=== PATIENT | male | born 1960 | race Hispanic/Latino ===

== ENCOUNTER 2017-06-25 12:12 | Emergency (ER) | payer OTHER, BC ==
[2017-06-25 12:13] VITALS: PULSE 104
[2017-06-25 12:27] VITALS: BMI 36.3
[2017-06-25 12:29] VITALS: BP 142/83; PULSE 80; RESP 16; TEMP 98; O2SAT 96
--- NOTE | 2017-06-25 14:16 | RAD ---
PROCEDURE: Right Hand Radiographs. HISTORY: 3rd and 2nd finger injury COMPARISON: None. FINDINGS: BONES: Minimally displaced, angulated fracture of the 4th distal phalanx. Small ossific fragment along the dorsal aspect of the 3rd distal interphalangeal joint. JOINTS: Unremarkable. SOFT TISSUES: Mild soft tissue swelling adjacent to the 3rd distal interphalangeal joint. OTHER FINDINGS: None. IMPRESSION: Minimally displaced, angulated fracture of the 4th distal phalanx. Small ossific fragment along the dorsal aspect of the 3rd distal interphalangeal joint may represent a chip/avulsion fracture.
--- NOTE | 2017-06-25 14:43 | ED PDOC ---
Upper Extremity Pain/Injury Time Seen by Provider: 06/25/17 12:49 Chief Complaint (Nursing): Upper Extremity Problem/Injury Chief Complaint (Provider): Right hand pain, injuries at work History Per: Patient History/Exam Limitations: no limitations Onset/Duration Of Symptoms: Hrs Current Symptoms Are (Timing): Still Present Additional Complaint(s): 57 yo male prestns wtih right hand injury. PT was fixing tire at work and fingers smashed. No numbness/tingling. PT reports most pain distal right 4th digit. Past Medical History Reviewed: Historical Data, Nursing Documentation, Vital Signs Vital Signs: Last Vital Signs Temp 98 F 06/25/17 12:27 Pulse 80 06/25/17 12:27 Resp 16 06/25/17 12:27 BP 142/83 06/25/17 12:27 Pulse Ox 96 06/25/17 12:27 - Medical History PMH: Diabetes Denies: Chronic Kidney Disease - Surgical History Surgical History: No Surg Hx - Family History Family History: States: No Known Family Hx - Living Arrangements Living Arrangements: With Family - Social History Current smoker - smoking cessation education provided: No - Home Medications Home Medications: Ambulatory Orders Medication Instructions Recorded Aspirin 81 mg PO DAILY 02/10/14 Atorvastatin [Lipitor] 80 mg PO DAILY 02/10/14 Carvedilol [Coreg] 3.125 mg PO BID 02/10/14 Clopidogrel [Plavix] 75 mg PO DAILY 02/10/14 Digoxin 0.25 mg PO DAILY 02/10/14 Furosemide [Lasix] 40 mg PO DAILY 02/10/14 Ramipril 1.25 mg PO DAILY 02/10/14 Spironolactone 25 mg PO DAILY 02/10/14 - Allergies Allergies/Adverse Reactions: Allergies Allergy/AdvReac Type Severity Reaction Status Date / Time No Known Allergies Allergy Verified 06/25/17 12:30 Review of Systems ROS Statement: Except As Marked, All Systems Reviewed And Found Negative Constitutional: Negative for: Fever, Chills Physical Exam - Reviewed Nursing Documentation Reviewed: Yes Vital Signs Reviewed: Yes - Physical Exam Appears: Positive for: Well, Non-toxic, No Acute Distress Head Exam: Positive for: ATRAUMATIC, NORMAL INSPECTION, NORMOCEPHALIC Skin: Positive for: Warm. Negative for: Normal Color (small hematoma, right anterior 3rd digit) Eye Exam: Positive for: Normal appearance ENT: Positive for: Normal ENT Inspection Neck: Positive for: Normal, Painless ROM Respiratory: Negative for: Accessory Muscle Use, Respiratory Distress Back: Positive for: Normal Inspection Extremity: Positive for: Normal ROM, Tenderness (distal 3rd and 4th digit, right ), Swelling. Negative for: Deformity Neurologic/Psych: Positive for: Alert, Oriented - ECG O2 Sat by Pulse Oximetry: 96 Medical Decision Making Medical Decision Making: (+) finger fracture Splint placed. Disposition - Clinical Impression Clinical Impression: Finger fracture - Patient ED Disposition Is Patient to be Admitted: No Counseled Patient/Family Regarding: Diagnosis, Need For Followup - Disposition Disposition: Routine/Home Disposition Time: 14:47 Condition: STABLE Instructions: Finger Fracture (ED) Forms: [facility] (Danish), [facility] ED School/Work Excuse
== END 2017-06-25 15:23 | disposition home or self-care (01) ==
LOC: H.ER 12:12
DX: S62.604A Fracture of unspecified phalanx of right ring finger, initial encounter for closed fracture (principal); W22.8XXA Striking against or struck by other objects, initial encounter; Y99.0 Civilian activity done for income or pay; E11.9 Type 2 diabetes mellitus without complications; Z79.82 Long term (current) use of aspirin